=== PATIENT | female | born 1975 | race Two or more races ===

== ENCOUNTER 2021-12-18 18:16 | Inpatient (IN) | payer OTHER ==
[~2021-12-18] VITALS: Ht 172.7 cm; Wt 86.2 kg
[2021-12-18] MEDS ORDERED: SYNTHROID50 MCG PO (19:22)
--- NOTE | 2021-12-18 19:24 | NUR ---
PTE ALERTA Y ORIENTADA X3 REFIERE TENER DOLOR EN ABDOMEN INFERIOR AREA DE OMBLIGO. SE REALIZAN S/V Y SE UBICA.
--- NOTE | 2021-12-18 22:43 | NUR ---
S ETOMAN MUESTRASD D ELAB JORGE LUIS ORDEN MEDICA Y BAJO MEDIDAS ASEOPPTICAS. PTE PENDIENTE A RESULTADOS.
--- NOTE | 2021-12-19 02:28 | NUR ---
PACIENTE ALERTA Y ORIENTADA X3. MIS. KEYS ORIENTA A PACIENTE SOBRE TX A RECIBIR Y REFIRIO ENTENDER. ADMINISTRA MEDICAMENTO ORDENADO POR MD. SE COLOCA COMPRESA DE HIELO.
--- NOTE | 2021-12-19 07:08 | NUR ---
SE RECIBE PTE DEL TURNO ANTERIOR, ALERTA Y ORIENTADA EN ALISSON ARUN ESFERAS, UBICADA EN LUKE NIVEL MAS BAJO, MAIN DE IDENTIFICACION Y BARANDAS ELEVADAS POR PRECAUCION. SE OBSERVA CON BUEN PATRON RESPIRATORIO. PIEL TIBIA AL TACTO. S/L PATENTE Y SHARMIN DE EDEMA O ERITEMA. PENDIENTE CONSULTA CON CIRUGIA GENERAL. SE MANTIENE BAJO OBSERVACION.
[2021-12-23] MEDS ORDERED: INTEGRA PLUS C1 EAC1 (08:08)
[2021-12-23] MEDS ORDERED: OMEPRAZOLE20 MG (08:08)
[2021-12-23] MEDS ORDERED: NORETHINDRONE AC5 MG (08:08)
[2021-12-23] MEDS ORDERED: FAMOTIDINE40 MG (08:08)
== END 2021-12-23 17:28 | disposition home or self-care (01) | DRG 355 ==
LOC: ER 18:16 → MEDI 12-19 20:20
PROVIDERS: ADMIT Internal Medicine; ATTEND Internal Medicine
PROC: BW21Y0Z Computerized Tomography (CT Scan) of Abdomen and Pelvis using Other Contrast, Unenhanced and Enhanced (ICD-10-PCS; 2021-12-18)
PROC: 0WUF4JZ Supplement Abdominal Wall with Synthetic Substitute, Percutaneous Endoscopic Approach (ICD-10-PCS; principal; 2021-12-19)
DX: K43.6 Other and unspecified ventral hernia with obstruction, without gangrene (principal); K45.0 Other specified abdominal hernia with obstruction, without gangrene; Z20.822 Contact with and (suspected) exposure to COVID-19

== ENCOUNTER 2022-03-04 07:00 | Inpatient (IN) | payer OTHER ==
[~2022-03-04] VITALS: Ht 172.7 cm; Wt 90.7 kg
[~2022-03-04 07:00] MED LIST: FAMOTIDINE40 MG; INTEGRA PLUS C1 EAC1; NORETHINDRONE AC5 MG; OMEPRAZOLE20 MG; SYNTHROID50 MCG PO
[2022-03-10] MEDS ORDERED: NORETHINDRONE AC5 MG (13:05)
[2022-03-12] MEDS ORDERED: INTEGRA PLUS C1 EACH PO (10:46)
[2022-03-12] MEDS ORDERED: IBU800 MG PO (10:46)
[2022-03-12] MEDS ORDERED: SURFAK240 M1 PO (10:46)
== END 2022-03-12 14:03 | disposition home or self-care (01) | DRG 743 ==
LOC: O/R 03-09 05:30 → OB/GYN 03-09 05:30 → SURH 03-09 07:00 → OB/GYN 03-09 11:03
PROVIDERS: ADMIT Obstetrics & Gynecology; ATTEND Obstetrics & Gynecology
PROC: 0UT60ZZ Resection of Left Fallopian Tube, Open Approach (ICD-10-PCS; 2022-03-09)
PROC: 0UT10ZZ Resection of Left Ovary, Open Approach (ICD-10-PCS; 2022-03-09)
PROC: 0UT90ZZ Resection of Uterus, Open Approach (ICD-10-PCS; principal; 2022-03-09 10:30)
DX: D25.1 Intramural leiomyoma of uterus (principal); D27.1 Benign neoplasm of left ovary; N93.8 Other specified abnormal uterine and vaginal bleeding; E03.8 Other specified hypothyroidism; N80.03 Adenomyosis of the uterus; N80.319 Endometriosis of the anterior cul-de-sac, unspecified depth; N83.8 Other noninflammatory disorders of ovary, fallopian tube and broad ligament; N88.8 Other specified noninflammatory disorders of cervix uteri

== ENCOUNTER 2022-03-22 02:55 | Emergency (ER) | payer OTHER ==
[~2022-03-22] VITALS: Ht 172.7 cm; Wt 90.7 kg
[~2022-03-22 02:55] MED LIST changes: +IBU800 MG PO; +INTEGRA PLUS C1 EACH PO; +SURFAK240 M1 PO
[2022-03-22] MEDS ORDERED: TUSNEL CAPLET1 EACH PO (05:43)
[2022-03-22] MEDS ORDERED: MEDROLPACK PO (05:43)
[2022-03-22] MEDS ORDERED: IPRAT-ALBUT 0.5-3 ML IH (05:43)
[2022-03-22] MEDS ORDERED: ZITHROMAX500 MG PO (05:43)
== END 2022-03-22 05:55 | disposition home or self-care (01) ==
LOC: ER 02:55
DX: J06.9 Acute upper respiratory infection, unspecified (principal); Z20.822 Contact with and (suspected) exposure to COVID-19